=== PATIENT | female | born 1960 | race Caucasian/White ===

== ENCOUNTER 2023-11-11 04:25 | Emergency (ER) | payer OTHER ==
[2023-11-11] MEDS ORDERED: Sodium Chloride 0.9% 1,000 ML ONE (04:34)
[2023-11-11] MEDS ORDERED: Sodium Chloride 0.9% 1,000 ML IV ONE (04:47)
[2023-11-11] MEDS ORDERED: Sodium Chloride 0.9% 10 ML Syringe FLUSH PRN (04:47)
[2023-11-11 05:01] LABS: BASOPHILS ABSOLUTE AUTO 0.01 10^3/uL (0.00-0.10); BASOPHILS PERCENT AUTO 0.1 % (0.0-1.0); EOSINOPHILS ABSOLUTE AUTO 0.11 10^3/uL (0.10-0.30); EOSINOPHILS PERCENT AUTO 1.2 % (1.0-3.0); HEMATOCRIT 43.7 % (37.0-47.0); HEMOGLOBIN 14.7 g/dL (12.0-16.0); IMMATURE GRAN ABSOLUTE AUTO 0.01 10^3/uL (0.00-0.50); IMMATURE GRAN PERCENT AUTO 0.1 % (0.0-5.0); LYMPHOCYTES ABSOLUTE AUTO 0.55 10^3/uL (1.00-4.00); LYMPHOCYTES PERCENT AUTO 5.9 % (20.0-40.0); MEAN CORPUSCULAR HEMOGLOBIN 29.7 pg (27.0-31.0); MEAN CORPUSCULAR HGB CONC 33.6 g/dL (32.0-36.0); MEAN CORPUSCULAR VOLUME 88.3 fL (82.0-92.0); MEAN PLATELET VOLUME 11.1 fL (7.4-10.4); MONOCYTES ABSOLUTE AUTO 0.39 10^3/uL (0.10-0.80); MONOCYTES PERCENT AUTO 4.2 % (2.0-8.0); NEUTROPHILS ABSOLUTE AUTO 8.23 10^3/uL (2.50-7.00); NEUTROPHILS PERCENT AUTO 88.5 % (50.0-70.0); PLATELET COUNT,PLT 226 10^3/uL (150-400); RED BLOOD CELL COUNT 4.95 10^6/uL (3.80-5.50)
[2023-11-11] MEDS ORDERED: Alum Hydrox/Mag Hydrox/Simeth 30 ML, Lidocaine 2% 15 ML PO ONE ×2 (05:10)
[2023-11-11] MEDS ORDERED: Ondansetron 4 MG/2 ML SDV ONE (05:12)
[2023-11-11] MEDS ORDERED: Ondansetron 4 MG/2 ML SDV IVPUSH ONE (05:12)
[2023-11-11 05:16] LABS: ALANINE AMINOTRANSFERASE,ALT 23 U/L (14-63); ALBUMIN 4.01 g/dL (3.40-5.00); ALKALINE PHOSPHATASE 80 U/L (46-116); AMYLASE 36 U/L (25-125); ASPARTATE AMNIOTRANSFERASE,AST 14 U/L (15-37); BILIRUBIN TOTAL 0.4 mg/dL (0.2-1.0); BLOOD UREA NITROGEN,BUN 19 mg/dL (7-18); CALCIUM 8.8 mg/dL (8.7-10.3); CARBON DIOXIDE,CO2 28.1 mmol/L (21.0-32.0); CHLORIDE,CL 102 mmol/L (98-107); CREATININE 0.64 mg/dL (0.51-1.17); EST CRCL DRUG DOSING (CG) 80.96 mL/min; GLUCOSE RANDOM 108 mg/dL (70-140); LIPASE 19 U/L (16-77); POTASSIUM,K 4.1 mmol/L (3.5-5.1); PROTEIN TOTAL,TP 7.7 g/dL (6.4-8.2); SODIUM,NA 139 mmol/L (136-145)
[2023-11-11 05:20] LABS: C-REACTIVE PROTEIN < 0.50 mg/dL (0.00-0.50); ESTIMATED GFR 99 mL/min (>=60)
== END 2023-11-11 06:54 | disposition home or self-care (01) ==
LOC: KA.ED 04:25
DX: A08.39 Other viral enteritis (principal); Z91.041 Radiographic dye allergy status
CPT/HCPCS: 36415; 74176; 80053; 82150; 83690; 85025; 86140; 96361; 96374; 99284; A9270; J2405; J7030